=== PATIENT | male | born 1960 | race Caucasian/White ===

== ENCOUNTER 2019-01-06 21:33 | Emergency (ER) | payer OTHER ==
[~2019-01-06] VITALS: Ht 195.6 cm; Wt 88.5 kg
[2019-01-06] MEDS ORDERED: PROSCAR 5MG TABL5 MG PO (21:57)
[2019-01-06] MEDS ORDERED: [UNRECOGNIZED DRUG - OTHER] (21:57)
[2019-01-06 22:02] LABS: ABSOLUTE BASOPHILS 0.1 thou/uL (0.0-0.2); ABSOLUTE MONOCYTES 0.6 thou/uL (0.0-1.2); ABSOLUTE NEUTROPHILS 13.8 thou/uL (1.6-8.1); BASOPHILS 0.3 %; EOSINOPHILS 0.1 %; HEMATOCRIT 43.9 % (42.0-52.0); HEMOGLOBIN 14.9 gm/dL (14.0-18.0); LYMPHOCYTES 12.4 %; MCH 32.5 pg (26.0-34.0); MCHC 33.9 g/dL (28.0-37.0); MCV 95.9 fL (80.0-100.0); MONOCYTES 3.6 %; MPV 8.9 fl. (7.2-11.1); NUCLEATED RBCS 0 /100WBC; PLATELET COUNT* 243 thou/uL (150-400); POLYS 83.6 %; RBC 4.58 mil/uL (4.50-6.00); RDW-CV 13.7 % (10.5-14.5); WBC 16.5 thou/uL (4.0-11.0)
[2019-01-06 22:17] LABS: CALCIUM 8.3 mg/dL (8.5-10.1); CREATININE 1.1 mg/dL (0.6-1.3); POTASSIUM 4.1 mmol/L (3.5-5.1); TOTAL BILIRUBIN 0.3 mg/dL (<0.1-1.0); TOTAL PROTEIN 7.3 g/dL (6.4-8.2)
[2019-01-06 22:18] LABS: URINE BLOOD 3+ (Negative); URINE CLARITY SL CLOUDY; URINE COLOR RED; URINE GLUCOSE-RANDOM TRACE (Negative); URINE KETONES 1+ (Negative); URINE LEUKOCYTES-REFLEX NEGATIVE (Negative); URINE PROTEIN 2+ (Negative); URINE SPECIFIC GRAVITY >= 1.030 (1.005-1.030); URINE UROBILINOGEN 0.2 E.U./dl (0.2-1.0)
[2019-01-06 22:24] LABS: URINE BILIRUBIN 1+ (Negative); URINE NITRITE-REFLEX POSITIVE (Negative)
[2019-01-06 22:31] LABS: ICTOTEST (BILI CONFIRMATORY) Negative (Negative)
[2019-01-06 23:31] LABS: SQUAMOUS NONE SEEN /LPF (0-3)
[2019-01-06 23:32] LABS: CASTS None Seen /LPF (None Seen); URINE RBC >20 Many /HPF (0-2); URINE WBC-REFLEX 6-15 Few /HPF (0-5)
[2019-01-06 23:33] LABS: BACTERIA-REFLEX >30 Many /HPF (None Seen); CRYSTALS None Seen /LPF (None Seen)
[2019-01-06] MEDS ORDERED: FLOMAX0.4 MG PO (23:40)
[2019-01-06] MEDS ORDERED: LEVAQUIN 750 M750 MG PO (23:40)
[2019-01-06] MEDS ORDERED: ZOFRAN ODT4 MG PO (23:40)
[2019-01-06 23:51] VITALS: BP 140/87
== END 2019-01-06 23:53 | disposition home or self-care (01) ==
LOC: M.ERS 21:33
PROVIDERS: Emergency Medicine
DX: N20.0 Calculus of kidney (principal); N39.0 Urinary tract infection, site not specified; R11.2 Nausea with vomiting, unspecified